=== PATIENT | male | born 1965 | race Caucasian/White ===

== ENCOUNTER → 2020-04-24 09:55 | Outpatient (BNVA) | payer MEDICARE, MEDICAID, SELFPAY | PROVIDERS: Family Provider Family Medicine; PCP Family Medicine; Visit Provider Registered Nurse | DX: I10 Essential (primary) hypertension (principal); Z79.899 Other long term (current) drug therapy | CPT/HCPCS: 36415; 80053; 80061; 83036; 85025 ==

== ENCOUNTER 2020-06-06 18:57 | Inpatient (IN) | payer MEDICARE, MEDICAID, SELFPAY ==
[2020-06-06 19:16] VITALS: BP 173/122; PULSE 108; RESP 16; TEMP 36.4; O2SAT 97; BMI 26.6
--- NOTE | 2020-06-06 19:26 | ED_ITS ---
HPI - Psych General: Chief Complaint: Psychiatric Symptoms Stated Complaint: 96 hold/MHE Time Seen by Provider: 06/06/20 19:12 Source: patient and police Mode of arrival: other (police) Limitations: no limitations History of Present Illness: HPI Narrative: 54-year-old male who has a history of bipolar rhythm. He states that he has been feeling increasingly manic and he is seen by behavioral health who is placed him under 96-hour hold for acute cathy and acute psychosis. Here he does appear paranoid and does have flight of abilities and very pressured speech. He denies any SI or HI. He denies any drug use. He denies any worsening improving factors. Review of Systems Const: Denies: fever(s), chills, body aches or change in appetite Eyes: Denies: blurry vision or eye discomfort ENMT: Denies: throat pain or dental pain Card: Denies: chest pain Resp: Denies: dyspnea GI: Denies: abdominal pain, nausea, vomiting or diarrhea : Denies: dysuria Musc: Denies: neck pain or back pain Skin/Breast: Denies: rash Neuro: Denies: headache(s) Psych: Reports: mood swings and difficulty concentrating Subhash/Lymph: Denies: easy bruising All/Imm: Denies: urticaria PFSH ED PFSH: Medical History (Updated 06/06/20 @ 19:23 by Ximena Trujillo MD) Allergic rhinitis Hypertension Schizoaffective disorder, bipolar type Surgical History (Updated 03/25/20 @ 15:37 by Lizzy Arboleda MD) H/O foot surgery Family History Other Diabetes Hypertension Social History Smoking and tobacco status: former smoker Quit status (tobacco): has quit using tobacco Alcohol intake: former Desire information about substance/drug rehabilitation?: No History of recent travel: No Current gender identity: Male Physical Exam Const: COMMON NORMALS: no acute distress, patient oriented x3 and healthy appearing HENMT: COMMON NORMALS: normocephalic and atraumatic HEAD & SCALP: normoceph alic and atraumatic Eye: COMMON NORMALS: Equal, round and reactive pupils present and EOMs intact bilaterally PUPIL: Yes Equal, round and reactive pupils present Neck/C-Spine: COMMON NORMALS: full ROM and supple Chest: COMMONS NORMALS: normal inspection of the chest and normal palpation of entire chest wall Resp: COMMON NORMALS: normal respiratory effort, No retractions, No use of accessory muscles and clear to auscultation bilaterally AUSCULTATION: clear to auscultation bilaterally Cardio: COMMON NORMALS: regular rate, regular rhythm and No murmurs present (Cardio) RATE: regular rate RHYTHM: regular rhythm GI: COMMON NORMALS: Normal to inspection, nondistended, normoactive bowel sounds present, Soft to palpation, non-tender and no masses PALPATION: Yes Soft to palpation Extremity: COMMON NORMALS: normal to inspection and full ROM Neuro: COMMON NORMALS: patient oriented x3, moves all extremities and no focal motor deficits Psych: COMMON NORMALS: mental status grossly normal and cooperative APPEARANCE: Yes disheveled ATTITUDE: Yes bizarre ACTIVITY/MOTOR BEHAVIOR: Yes hyperactivity and Yes disorganized behavior SPEECH: Yes excessive and Yes rapid MOOD & AFFECT: Yes elevated mood Skin: COMMON NORMALS: no rashes or lesions noted and no wounds GENERAL SKIN EXAM: no rashes or lesions noted MDM - Psych MDM Narrative: Medical decision making narrative: Patient presents here with acute psychosis likely manic episode. Patient is placed under 96-hour hold. He is well-appearing here he does have flight of ideas and does appear to be quite manic. I spoke to psychiatrist and will admit to the MPU. Discharge Plan Discharge Patient Disposition: Admitted As Inpatient Admit Provider: Pilo Galarza Clinical Impression: Acute psychosis Condition: Stable Coding Level of Care Code ED Expeller Operator for Chg Fwd Exam Comprehensive
--- NOTE | 2020-06-06 19:34 | PC.NURSE ---
patient refused PO ativan
[2020-06-06 19:45] VITALS: BP 169/114; PULSE 100; O2SAT 98
[2020-06-06 19:52] LABS: Basophils % 0.4 %; Eosinophils # 0.1 10^3/uL (0.0-0.8); Eosinophils % 1.4 %; Hematocrit 43.4 % (42.0-52.0); Hemoglobin 14.6 g/dL (11.7-16.6); Lymphocytes # 1.5 10^3/uL (0.8-4.8); Lymphocytes % 14.8 %; Mean Corpuscular HGB Conc 33.6 g/dL (30.0-36.0); Mean Corpuscular Hemoglobin 30.1 pg (28.0-34.0); Mean Corpuscular Volume 89.5 fL (80-94); Mean Platelet Volume 9.5 fL (7.4-10.4); Monocytes # 0.9 10^3/uL (0.2-0.9); Monocytes % 8.8 %; Neutrophils # 7.47 10^3/uL (1.8-7.7); Neutrophils % 74.2 %; Nucleated Red Blood Cells % 0 %; Platelet Count 263 10^3/cmm (130-400); Red Blood Count 4.85 10^6/uL (4.1-5.3); Red Cell Distribution Width 12.1 % (12.1-15.1); White Blood Count 10.1 10^3/uL (4.0-10.0)
[2020-06-06 20:11] LABS: Alanine Aminotransferase 51 U/L (0-41); Albumin Level 4.7 g/dL (3.5-5.2); Alkaline Phosphatase 112 IU/L (40-130); Anion Gap 18.4 (5-19); Aspartate Amino Transferase 32 U/L (0-40); Blood Urea Nitrogen 19 mg/dL (6-20); Calcium 8.8 mg/dL (8.5-10.5); Carbon Dioxide 23 mmol/L (22-29); Chloride 102 mmol/L (98-107); Globulin 2.4 g/dL (1.3-4.6); Glucose 107 mg/dL (65-115); Osmolality Calculated 291 mOsm/kg (285-295); Potassium 4.4 mmol/L (3.5-5.1); Sodium 139 mmol/L (136-145); Total Bilirubin 0.2 mg/dL (0.15-1.2); Total Protein 7.1 g/dL (6.6-8.7)
[2020-06-06 20:12] LABS: Acetaminophen < 5.0 ug/mL (10-30); Alcohol Level < 10 mg/dL (0-10); Salicylate < 0.3 mg/dL (3-10)
[2020-06-06 20:14] LABS: Lithium 0.1 mmol/L (0.6-1.2)
[2020-06-06 20:42] LABS: Amphetamines Screen Urine Negative (Negative); Barbiturates Screen Urine Negative (Negative); Benzodiazepines Screen Urine Negative (Negative); Cocaine Screen Urine Negative (Negative); Opiate Screen Urine Negative (Negative); PCP Screen Urine Negative (Negative); THC Screen Urine Negative (Negative)
[2020-06-06 20:49] VITALS: PULSE 100
[2020-06-06 22:28] VITALS: BP 161/92; PULSE 98; RESP 19; TEMP 36.6; O2SAT 96
[2020-06-06] MEDS: hyDROXYzine 25 mg Capsule 50 MG PO (22:48)
--- NOTE | 2020-06-06 22:52 | PC.NURSE ---
PRN VISTARIL Patient pacing in and out of room, patient is anxious and demanding, making multiple requests of staff. Patient stated that at 17 he saw God for a brief time and was . stated he didn't go to school that day because everyone was picking on him and he stayed out in the cold too long. states that while he was God told him he was coming back (to [place]), but did show him where he would stay when he returned (to [facility]). God also told him not to do it again. Vistaril 50mg given PO.
[2020-06-06] MEDS: ibuprofen 800 mg tablet PO (23:50)
[2020-06-07] MEDS: fluticasone nasal spray 16gm Btl 1 SPRAY INTRANASAL ×2 (00:02→09:05)
[2020-06-07] MEDS: hyDROXYzine 25 mg Capsule PO (01:02)
[2020-06-07 01:57] VITALS: PULSE 90; RESP 18; O2SAT 98
[2020-06-07 06:00] VITALS: BP 141/92; PULSE 67; RESP 18; TEMP 36.7; O2SAT 95
--- NOTE | 2020-06-07 06:13 | PC.NURSE ---
PM assessment 54/M patient is upset that he is here and that his therapist made him come here by special educator saying he is manic, I am not manic Pt rambles non-stop. Pt believes he is a werewolf, needs polarized sunglasses or his corneas burn, because he is not a normal werewolf. Pt says he stares at the sun to gain night vision, Pt says, he is not registered because it is too costly, no on knows I was a nadir, and trained with the [employer]. pt is delusional. States he was last in patient in [place] [id number]
[2020-06-07] MEDS: hyDROXYzine 25 mg Capsule 50 MG PO (09:04)
[2020-06-07 09:22] VITALS: PULSE 67; RESP 18; O2SAT 95
--- NOTE | 2020-06-07 09:43 | PC.NURSE ---
PRN VISTARIL Around 0900 patient became anxious and requested medication. Given 50 mg po vistaril. At 0945 patient was calm.
--- NOTE | 2020-06-07 10:34 | P.SS_ITS ---
Short Stay Summary Providers Date of Admit/Discharge: 06/07/20 Attending Provider: Pilo Galarza DO Primary Care Provider: Lizzy Arboleda MD Chief Complaint: 96 hold/MHE HPI History of Present Illness Jeff Walsh is a 54 year old male with history of schizoaffective disorder, bipolar type presented to the emergency department by police on a 96-hour hold with report of being increasingly manic and paranoid. Patient denies any paranoid delusions. Patient does make fantastical statement of being able to soul travel and does report that he stated that he felt like somebody might of put poison in his mixed nights but denies any current thoughts of anyone trying to harm him or watching him and denies any thoughts of trying to harm anyone else secondary to paranoia. He denies any auditory or visual hallucinations. He does report having auditory hallucinations at times but denies any command auditory hallucinations and endorses good reality testing. He denies any suicidal ideation or thoughts about self-harm and denies any homicidal ideation or thoughts about harming others. He denies any recent sustained mood symptoms, denies any sustained low mood states or depressive symptoms. Patient states that he did feel hyper and irritable during his last therapy appointment but denies any sense of feeling pressured, flight of ideas or difficulty thinking clearly. Patient reports being compliant with this medication and denies any medication side effects. Patient reports being compliant with his medication management and therapy follow-up. Psychiatric review of systems is otherwise negative. Review of Systems General: Reports: 10 or more systems reviewed and unremarkable except in HPI and below Home Meds/Allergies Home Medications and Allergies Home Medications Medication Instructions Recorded Confirmed Type albuterol sulfate 90 mcg/actuation 2 puff INHALATION Q6H PRN 03/27/19 06/06/20 History aerosol inhaler ascorbic acid (vitamin C) 500 mg 500 mg PO DAILY tab 03/27/19 06/06/20 History tablet biotin 1 mg capsule 1 mg PO DAILY cap 03/27/19 06/06/20 History cholecalciferol (vitamin D3) 250 10,000 unit PO DAILY 03/27/19 06/06/20 History mcg (10,000 unit) capsule ergocalciferol (vitamin D2) 10 mcg 400 unit PO DAILY 03/27/19 06/06/20 History (400 unit) tablet garlic 1,000 mg capsule 1,000 mg PO DAILY 03/27/19 06/06/20 History ibuprofen 800 mg tablet 800 mg PO Q8H PRN 03/27/19 06/06/20 History jxkzkwfl-mqwfglma-wbfsk acid 400 1 tab PO DAILY 03/27/19 06/06/20 History mcg-vit K 20 mcg-lycop 300 mcg tablet omega-3 fatty acids 1,000 mg ? mg PO DAILY cap 03/27/19 06/06/20 History capsule saw palmetto 450 mg capsule 450 mg PO DAILY cap 03/27/19 06/06/20 History vitamin A 2,400 mcg capsule ? unit PO DAILY cap 03/27/19 06/06/20 History vitamin B complex 1 cap PO DAILY 03/27/19 06/06/20 History hydroxyzine pamoate 25 mg capsule 25 mg PO BID PRN 05/01/19 06/06/20 History dextromethorphan-guaifenesin 10 1 tab-cap PO Q8H PRN 03/25/20 06/06/20 History mg-200 mg capsule asenapine maleate [Saphris] 10 mg SUBLINGUAL BEDTIME 06/06/20 06/06/20 History cetirizine [Allergy Relief 10 mg PO DAILY PRN 06/06/20 06/06/20 History (cetirizine)] Allergies Allergy/AdvReac Type Severity Reaction Status Date / Time benztropine [From Cogentin] Allergy Unknown Unknown Verified 03/25/20 15:01 bismuth subsalicylate Allergy Unknown Unknown Verified 03/25/20 15:01 [From Pepto-Bismol] codeine Allergy Unknown Unknown Verified 03/25/20 15:01 fluphenazine [From Prolixin] Allergy Unknown Unknown Verified 03/25/20 15:01 haloperidol [From Haldol] Allergy Unknown Unknown Verified 03/25/20 15:01 hepatitis A virus vaccine Allergy Unknown Unknown Verified 03/25/20 15:01 lithium Allergy Unknown Unknown Verified 03/25/20 15:01 olanzapine [From Zyprexa] Allergy Unknown Unknown Verified 03/25/20 15:01 risperidone [From Risperdal] Allergy Unknown Unknown Verified 03/25/20 15:01 thioridazine [From Mellaril] Allergy Unknown Unknown Verified 03/25/20 15:01 PFSH Acute PFSH: Medical History Allergic rhinitis Hypertension Schizoaffective disorder, bipolar type Surgical History H/O foot surgery Family History Other Diabetes Hypertension Social History Smoking and tobacco status: former smoker Quit status (tobacco): has quit using tobacco Alcohol intake: former Desire information about substance/drug rehabilitation?: No History of recent travel: No Current gender identity: Male Vitals/I&O/Wt Last Vital Signs Temp 98.0 F 06/07/20 06:00 Pulse 67 06/07/20 09:22 Resp 18 06/07/20 09:22 BP 141/92 06/07/20 06:00 Pulse Ox 95 06/07/20 09:22 Weight last 48 hrs Weight 81.647 kg Physical Exam Narrative: EXAM NARRATIVE: MSE: Appears stated age, appropriately groomed and dressed in hospital scrubs, slow steady gait, appears to have bilateral transmetacarpal amputations, calm, cooperative, interactive, polite, good eye contact Psychomotor activity is neither increased nor decreased, no agitation Speech is normal rate and volume, not pressured, clear articulation, spontaneous I feel good, congruent affect, not expansive not labile Alert and oriented to person, place, time, situation Memory and concentration appear to be intact per interview Intellectual functioning appears to be average based on vocabulary, interview Thought process, linear, no flight of ideas, no looseness of associations Thought content, some overvalued ideas and ideation, does not appear to be attending to any internal stimuli, no suicidal or homicidal ideation Insight and judgment appear to be fair to intact Hospital Course Hospital Course Patient was last seen at [facility] by therapist 06/03/2020 at which time he was reportedly more manic, flight of ideas, expressing paranoid ideation. Patient was subsequently picked up from his home by police on a 96-hour hold with concerns about paranoid delusions, cathy. Patient was not found to be pressured in his speech, thoughts or behaviors at the time of initial evaluation and was not expressing any suicidal ideation or homicidal ideation. He was denying any paranoid delusions but did confirm that he had made a statement that he thought someone had put something in his mixed nuts that he was eating secondary to soul traveling. Patient denies any plans to act on any paranoid ideation or thoughts that someone may have done something and reports to have good reality testing. He denies any recent sustained low mood states her depressive symptoms. He denies any sustained elevated or expansive mood states. Patient was interacting appropriately talking with other patients with no behavioral disturbances during his stay in which he was continued on his home medications with no reports of any medication side effects. Patient was not suicidal or homicidal and was not psychotic or manic at the time of discharge and did not appear to pose an imminent threat of harm to self or others. Low to moderate risk given no current signs of cathy, no suicidal homicidal ideation although patient's risk may be elevated if he is not compliant with his medication, medication management or therapy follow-up leading to worsening mood states or unexpected, impulsive behavior. Risk mitigation included psychiatric hospitalization for observation, continuation of his home medications and c oordination for safe discharge. Patient has history of compliance with his medication and medication management and therapy follow-up. Patient Gilberto indicate his understanding of the need to be compliant with his medication, medication management and therapy follow-up in order to further mitigate his risk of harm to self and others. Diagnoses at Discharge Discharge Diagnosis (1) Schizoaffective disorder, bipolar type: Status: Acute Discharge Plan Discharge Patient Disposition: Home Condition: Stable Prescriptions: Continued albuterol sulfate [ProAir HFA] 90 mcg/actuation HFA aerosol inhaler 2 puff INHALATION Q6H PRN (Reason: Shortness Of Breath) RF: 0 ibuprofen 800 mg tablet 800 mg PO Q8H PRN (Reason: Pain) RF: 0 omega-3 fatty acids [Fish Oil Concentrate] 1,000 mg capsule ? mg PO DAILY RF: 0 vitamin B complex Capsule 1 cap PO DAILY RF: 0 garlic 1,000 mg capsule 1,000 mg PO DAILY RF: 0 saw palmetto 450 mg capsule 450 mg PO DAILY RF: 0 ascorbic acid (vitamin C) 500 mg tablet 500 mg PO DAILY RF: 0 biotin 1 mg capsule 1 mg PO DAILY RF: 0 One-A-Day Men's Multivitamin 400-20-300 mcg tablet 1 tab PO DAILY RF: 0 cholecalciferol (vitamin D3) 10,000 unit capsule 10,000 unit PO DAILY RF: 0 ergocalciferol (vitamin D2) 400 unit tablet 400 unit PO DAILY RF: 0 vitamin A 8,000 unit capsule ? unit PO DAILY RF: 0 Robitussin Cough-Chest Alexis DM 10-200 mg capsule 1 tab-cap PO Q8H PRN (Reason: Cough) RF: 0 fluticasone propionate 50 mcg/actuation spray,suspension 1 spray intranasal Q12H 30 Days Qty: 15.8 RF: 1 hydroxyzine pamoate [Vistaril] 25 mg capsule 25 mg PO BID PRN (Reason: Anxiety) RF: 0 (DME) Replace partial foot prosthesis bilaterally See Rx Instructions .Route .MEDSUPPLY Qty: 1 RF: 0 Allergy Relief (cetirizine) 10 mg Tablet 10 mg PO DAILY PRN (Reason: Allergy Symptoms) RF: 0 Saphris 10 mg tablet, sublingual 10 mg SUBLINGUAL BEDTIME RF: 0 Discharge Orders: Discharge Order (Routine); Ordered 06/07/20 Ordered By: Pilo Galarza Referrals: Lizzy Arboleda MD [Primary Care Provider] - Discharge Diet: Regular Discharge Activity: Resume usual activity Patient Instructions: Opioid Safety Attestations Medical Necessity Statement*: Emergent or acute psychiatric hospitalization is not indicated at this time, outpatient medication management and therapy is the least restrictive and appropriate level of care at this time. Time Spent in Patient Care*: greater than 30 min Status at Discharge: Cognitive status at discharge: cognitively intact , Behavioral status at discharge: cooperative , Functional status at discharge: independent ambulation Overall status at discharge: patient is back to baseline Quality Metrics Clinical Quality Measures: During this hospital stay, did patient experience: None Coding Level of Care Code Acute Drafter Directional Survey for Chg Fwd Diagnoses Schizoaffective disorder, bipolar type F25.0
[2020-06-07 10:47] VITALS: PULSE 67; RESP 18; O2SAT 95
== END 2020-06-07 12:21 | disposition home or self-care (01) | DRG 885 ==
LOC: ER 19:23 → NP 19:43
PROVIDERS: Admitting Provider Psychiatry & Neurology Psychiatry; Emergency Provider Emergency Medicine; PCP Family Medicine; Visit Provider Psychiatry & Neurology Psychiatry
DX: F25.0 Schizoaffective disorder, bipolar type (principal); I10 Essential (primary) hypertension; Z87.891 Personal history of nicotine dependence
CPT/HCPCS: 80053; 80178; 80306; 80307; 85025; 99285

== ENCOUNTER → 2020-08-08 13:06 | Outpatient (BNVA) | payer MEDICARE, MEDICAID, SELFPAY | PROVIDERS: PCP Family Medicine; Visit Provider Psychiatry & Neurology Psychiatry | DX: F25.0 Schizoaffective disorder, bipolar type (principal) | CPT/HCPCS: 99214 ==

== ENCOUNTER → 2020-09-03 13:05 | Outpatient (BNVA) | payer MEDICARE, MEDICAID, SELFPAY | PROVIDERS: PCP Family Medicine; Visit Provider Counselor Mental Health | DX: F25.0 Schizoaffective disorder, bipolar type (principal); F43.12 Post-traumatic stress disorder, chronic | CPT/HCPCS: 90834 ==

== ENCOUNTER → 2020-09-15 12:48 | Outpatient (BNVA) | payer MEDICARE, MEDICAID, SELFPAY | PROVIDERS: PCP Family Medicine; Visit Provider Counselor Mental Health | DX: F25.0 Schizoaffective disorder, bipolar type (principal); F43.12 Post-traumatic stress disorder, chronic | CPT/HCPCS: 90832 ==

== ENCOUNTER → 2020-10-03 12:30 | Outpatient (BNVA) | payer MEDICARE, MEDICAID, SELFPAY | PROVIDERS: PCP Family Medicine; Visit Provider Psychiatry & Neurology Psychiatry | DX: F25.0 Schizoaffective disorder, bipolar type (principal) | CPT/HCPCS: 99213 ==

== ENCOUNTER → 2020-11-27 11:08 | Outpatient (BNVA) | payer MEDICARE, MEDICAID, SELFPAY | PROVIDERS: PCP Family Medicine; Visit Provider Family Medicine | DX: Z11.3 Encounter for screening for infections with a predominantly sexual mode of transmission (principal); Z72.51 High risk heterosexual behavior; I10 Essential (primary) hypertension; Z13.1 Encounter for screening for diabetes mellitus; Z91.81 History of falling; Z71.89 Other specified counseling | CPT/HCPCS: 80048; 86705; 86706; 87340; 87491; 87591; 87806 ==

== ENCOUNTER → 2021-03-02 08:11 | Outpatient (BNVA) | payer MEDICARE, MEDICAID, SELFPAY | PROVIDERS: PCP Family Medicine; Visit Provider Psychiatry & Neurology Psychiatry | DX: F25.0 Schizoaffective disorder, bipolar type (principal) | CPT/HCPCS: 99214 ==